=== PATIENT | female | born 1955 | race American Indian/Alaskan Native ===

== ENCOUNTER 2021-07-30 13:17 | Emergency (ER) | payer SELFPAY ==
[2021-07-30 13:23] VITALS: BP 146/77
--- NOTE | 2021-07-30 13:40 | Emergency Department Report ---
ED General Adult HPI - General Chief complaint: Skin Rash Stated complaint: ECZEMA Time Seen by Provider: 07/30/21 13:23 Source: patient Mode of arrival: Ambulatory Limitations: Language Barrier - History of Present Illness Initial comments: 66-year-old -Spanish female patient presents with complaints of eczema bilaterally to hands x2 weeks. She states in the past she has received clobetasol cream which works well for her eczema. She denies any redness or joint pains in the hands or difficulty moving her hands. No other past medical history per patient Severity scale (0 -10): 0 - Related Data Previous Rx's Medication Instructions Recorded Last Taken Type Clobetasol Propionate 1 gm TP BID PRN #1 oint...g. 07/30/21 Unknown Rx Allergies Allergy/AdvReac Type Severity Reaction Status Date / Time No Known Allergies Allergy Unverified 07/30/21 13:19 ED Review of Systems ROS: Stated complaint: ECZEMA Other details as noted in HPI Constitutional: denies: fever Musculoskeletal: denies: joint swelling, arthralgia Skin: denies: change in color Neurological: denies: numbness, paresthesias ED Past Medical Hx - Past Medical History Additional medical history: KELOIDS - Medications Home Medications: Home Medications Medication Instructions Recorded Confirmed Last Taken Type Clobetasol Propionate 1 gm TP BID PRN #1 oint...g. 07/30/21 Unknown Rx ED Physical Exam - General Limitations: Language Barrier General appearance: alert, in no apparent distress - Head Head exam: Present: atraumatic, normocephalic - Eye Eye exam: Present: normal appearance - Respiratory Respiratory exam: Absent: respiratory distress - Cardiovascular Cardiovascular Exam: Present: regular rate - Neurological Exam Neurological exam: Present: alert, oriented X3 - Psychiatric Psychiatric exam: Present: normal affect, normal mood - Skin Skin exam: Present: warm, dry, intact, normal color, other (Dry eczematic rash noted bilaterally to dorsal aspect of hands and fingers without redness, swelling, drainage, or tenderness to palpation) ED Course Vital Signs 07/30/21 13:23 Temperature 98.1 F Pulse Rate 95 H Respiratory 20 Rate Blood Pressure 146/77 [Right] O2 Sat by Pulse 100 Oximetry ED Medical Decision Making - Medical Decision Making 66-year-old -Spanish female patient presents with complaints of eczema bilaterally to hands x2 weeks. She states in the past she has received clobetasol cream which works well for her eczema. She denies any redness or joint pains in the hands or difficulty moving her hands. No other past medical history per patient Clobetasol cream prescribed. Recommend follow-up with primary care for recheck of blood pressure in 3 to 5 days. Patient is well-appearing and stable for discharge home. Strict return precautions discussed in detail with patient who verbalizes understanding Critical care attestation.: If time is entered above; I have spent that time in minutes in the direct care of this critically ill patient, excluding procedure time. ED Disposition Clinical Impression: Eczema of both hands Disposition: HOME / SELF CARE / HOMELESS Is pt being admited?: No Condition: Stable Instructions: Eczema Prescriptions: Clobetasol Propionate 1 gm TP BID PRN #1 oint...g. PRN Reason: eczema Referrals: [facility] [Provider Group] - 3-5 Days [facility] [Outside] - 3-5 Days
== END 2021-07-30 14:53 | disposition home or self-care (01) ==
LOC: ED 13:17
DX: L30.9 Dermatitis, unspecified (principal); L91.0 Hypertrophic scar
CPT/HCPCS: 99282